=== PATIENT | male | born 1995 | race Caucasian/White ===

== ENCOUNTER 2017-06-24 09:18 | Observation (INO) | payer BC, OTHER ==
[2017-06-24] VITALS (7 sets, daily range): BP systolic 94–114; BP diastolic 56–69; PULSE 58–74; TEMP 36.5–37.4; O2SAT 95–100; Ht 162.6 cm; Wt 58.2 kg
[~2017-06-24] VITALS: Ht 162.6 cm; Wt 58.2 kg
[2017-06-24] MEDS ORDERED: SODIUM CHLORIDE 0.9% 1000ML 1,000 ML IV STA (09:48)
[2017-06-24] MEDS ORDERED: MoRPHine SULFATE 4 MG/ML 1 ML CARP\\VIAL IV STA (09:48)
[2017-06-24] MEDS ORDERED: ONDANSETRON INJ 2 MG/ML 2 ML VIAL IV STA (09:48)
[2017-06-24] MEDS ORDERED: OPTIRAY 320 IV PRN (10:15)
[2017-06-24 10:25] LABS: BASO % 0.2 %; BASO ABS # 0.02 K/uL (0-0.2); EOS % 0.4 %; EOS ABS # 0.05 K/uL (0-0.5); HEMATOCRIT 40.6 % (42-52); HEMOGLOBIN 14.3 g/dL (14.0-18.0); IG# 0.04 K/uL (0.00-0.02); LYMPH ABS # 0.89 K/uL (1.2-3.4); MEAN CELL VOLUME 83.9 fL (80-100); MEAN CORPUSCULAR HEMOGLOBIN 29.5 pg (25-34); MEAN CORPUSCULAR HGB CONC 35.2 g/dl (32-36); MEAN PLATELET VOLUME 10.2 fL (7.4-10.4); MONO % 7.7 %; MONO ABS # 0.97 K/uL (0.11-0.59); NEUT % 84.4 %; NEUT ABS # 10.66 K/uL (1.4-6.5); PLATELET COUNT 190 K/uL (130-400); RED CELL DISTRIBUTION WIDTH CV 12.3 % (11.5-14.5); RED CELL DISTRIBUTION WIDTH SD 37.7 fL (36.4-46.3); WHITE BLOOD COUNT 12.63 K/uL (4.8-10.8)
[2017-06-24 10:35] LABS: ALBUMIN 3.7 gm/dl (3.4-5.0); CREATININE 0.93 mg/dl (0.60-1.40); POTASSIUM 3.6 mmol/L (3.5-5.1)
[2017-06-24 10:38] LABS: TOTAL PROTEIN 7.2 gm/dl (6.4-8.2)
--- NOTE | 2017-06-24 10:52 | EMERGENCY ROOM VISIT NOTE ---
ED Visit Note First contact with patient: 09:32 Chief Complaint: Abdominal pain. History of Present Illness: Mr. Crum is a 22 year-old white male who ambulates into the ED accompanied by his parents complaining of lower quadrant abdominal pain. Historically patient reports no previous gastrointestinal disorders or abdominal surgeries. Patient reports his symptoms started yesterday with a sore throat and nausea. He took [place] and had relief of his discomfort. He then goes on to report that approximately 4:30 AM this morning, approximately 5 hours before he arrived in the emergency department, he was awoken from sleep with acute onset of lower abdominal pain. He reports his pain has been constant since that time but only with activity. If he is not walking or moving his abdominal muscles he reports he is pain-free. If he is walking or moving his abdominal muscles he describes a central lower abdominal pain with right-sided prominence as a sharp sensation. He rates his discomfort 7/10. He has not taken any medications for pain prior to arrival at the hospital. Associated with his pain he reports he is nauseated but has not vomited. Patient denies fevers, chills, sweats, skin eruptions, skin color changes, upper respiratory tract symptoms, shortness of breath, chest pain, diarrhea, constipation, rectal bleeding, black/tarry stools, urinary symptoms, hematuria, back/flank pain. Review of Systems: As noted above in history of present illness. All body systems were reviewed and found to be negative as noted above. Past Medical History: Pneumonia, status post tonsillectomy. Current Medications: Patient denies. Allergies to Medications: Patient denies. Social History: Patient is currently employed; he lives with his family and feels safe in his home environment; he admits to tobacco use and denies alcohol use. Physical Examination: Vital Signs: Date Time Temp Pulse Resp B/P (MAP) Pulse Ox O2 Delivery O2 Flow Rate FiO2 06/24/17 15:45 60 14 108/43 99 Nasal Cannula 2 06/24/17 15:35 36.2 62 15 108/54 98 Nasal Cannula 2 06/24/17 15:25 64 16 104/55 97 Nasal Cannula 2 06/24/17 15:15 83 13 101/58 100 Oxymask 10 06/24/17 15:05 60 16 97/57 100 Oxymask 10 06/24/17 14:59 36.3 79 14 111/69 100 Oxymask 10 06/24/17 13:27 78 18 106/64 98 Room Air 06/24/17 12:38 67 20 115/65 100 Room Air 06/24/17 11:15 68 20 128/78 100 06/24/17 09:23 37.3 95 17 124/69 97 Room Air GENERAL: 22-year-old male in mild distress due to pain, nontoxic-appearing, afebrile and hemodynamically stable. NEUROLOGICAL: Awake, alert and oriented to person, place and time. Answering questions appropriately and following commands. Normal gait. Good hand eye coordination. SKIN: Warm, dry and pink. No soft tissue eruptions or trauma noted. HEENT: Atraumatic and normocephalic. PERRLA. Sclera white and conjunctiva pink. Oral cavity moist and pink. Uvula is midline and no abscesses are seen. Pharynx is mildly erythematous but not edematous. No exudative material over the posterior pharyngeal area. Speech normal. No lymphadenopathy. Trachea midline. No jugular venous distention. BACK: No tenderness over the bony spine. No CVA tenderness. THORAX: Lungs sounds are clear to auscultation and equal bilaterally with symmetrical chest wall. No wheezing, rales or rhonchi. HEART: Regular rate and rhythm. No gallops, rubs or murmurs are appreciated. ABDOMEN: Flat and soft with moderate tenderness and guarding in the right lower quadrant just superior to McBurney's point and mild tenderness without guarding in the left lower quadrant. Positive bowel sounds in all quadrants. No rigidity or organomegaly. EXTREMITIES: Moves all extremities well on command and with purpose. All distal neurovascular statuses are intact and equal bilaterally. ED Course: Patient is assessed as noted above. Patient's medication list was reviewed. Laboratory Testing: Test 06/24/17 10:10 06/24/17 10:30 Range/Units White Blood Count 12.63 4.8-10.8 K/uL Red Blood Count 4.84 4.7-6.1 M/uL Hemoglobin 14.3 14.0-18.0 g/dL Hematocrit 40.6 42-52 % Mean Corpuscular Volume 83.9 80-100 fL Mean Corpuscular Hemoglobin 29.5 25-34 pg Mean Corpuscular Hemoglobin Concent 35.2 32-36 g/dl Platelet Count 190 130-400 K/uL Mean Platelet Volume 10.2 7.4-10.4 fL Neutrophils (%) (Auto) 84.4 % Lymphocytes (%) (Auto) 7.0 % Monocytes (%) (Auto) 7.7 % Eosinophils (%) (Auto) 0.4 % Basophils (%) (Auto) 0.2 % Neutrophils # (Auto) 10.66 1.4-6.5 K/uL Lymphocytes # (Auto) 0.89 1.2-3.4 K/uL Monocytes # (Auto) 0.97 0.11-0.59 K/uL Eosinophils # (Auto) 0.05 0-0.5 K/uL Basophils # (Auto) 0.02 0-0.2 K/uL RDW Standard Deviation 37.7 36.4-46.3 fL RDW Coefficient of Variation 12.3 11.5-14.5 % Immature Granulocyte % (Auto) 0.3 % Immature Granulocyte # (Auto) 0.04 0.00-0.02 K/uL Sodium Level 139 136-145 mmol/L Potassium Level 3.6 3.5-5.1 mmol/L Chloride Level 106 98-107 mmol/L Carbon Dioxide Level 26 21-32 mmol/L Anion Gap 6.0 3-11 mmol/L Blood Urea Nitrogen 11 7-18 mg/dl Creatinine 0.93 0.60-1.40 mg/dl Est Creatinine Clear Calc Drug Dose 103.4 ml/min Estimated GFR () 135.5 Estimated GFR (Non- 116.9 BUN/Creatinine Ratio 11.4 10-20 Random Glucose 87 70-99 mg/dl Calcium Level 9.0 8.5-10.1 mg/dl Total Bilirubin 0.7 0.2-1 mg/dl Direct Bilirubin 0.2 0-0.2 mg/dl Aspartate Amino Transf (AST/SGOT) 10 15-37 U/L Alanine Aminotransferase (ALT/SGPT) 21 12-78 U/L Alkaline Phosphatase 62 45-117 U/L Total Protein 7.2 6.4-8.2 gm/dl Albumin 3.7 3.4-5.0 gm/dl Lipase 83 73-393 U/L Urine Color YELLOW Urine Appearance CLEAR CLEAR Urine pH 6.0 4.5-7.5 Urine Specific [place] 1.022 1.000-1.030 Urine Protein NEG NEG Urine Glucose (UA) NEG NEG Urine Ketones NEG NEG Urine Occult Blood NEG NEG Urine Nitrite NEG NEG Urine Bilirubin NEG NEG Urine Urobilinogen NEG NEG Urine Leukocyte Esterase NEG NEG 06/24/17 Group A Streptococcus Screen: SPECIMEN NEGATIVE FOR GROUP A BETA ST... Appendix Ultrasound: Was reviewed by myself and read by the radiologist and shows findings suggestive of acute appendicitis with a noncompressible blind ending tubular structure in the right lower quadrant measuring 7 mm. Apparent hyperemia and trace fluid. Patient was prepped for a contrast abdominal/pelvic CT prior to ultrasound findings. Patient was hydrated with normal saline and received 4 mg of morphine IV for pain and 4 mg of Zofran IV. Patient was reassessed multiple times during his stay in the emergency department. Patient's case was reviewed with Dr. Crane; we agreed on diagnostic approach, treatment, disposition and plan. Patient's case was consulted with Dr. Hensley, general surgery, for surgical evaluation. Patient and parents were educated about today's findings. Clinical Impression: Acute appendicitis. Decision-Making: Initially my differential diagnosis I considered appendicitis, bowel obstruction, constipation, urinary tract infection, Meckel's diverticulum , mesenteric adenitis and other causes. Disposition and Plan: Patient be taken to the operating room by Dr. Hirsch for an appendectomy; please see his notes and orders for final disposition and plan.
--- NOTE | 2017-06-24 12:00 | DIAGNOSTIC IMAGING REPORT ---
ABDOMINAL ULTRASOUND, RIGHT UPPER QUADRANT HISTORY: ABDOMINAL PAIN. COMPARISON: None. FINDINGS: Note is made of a noncompressible blind ending tubular structure with gut signature within the right lower quadrant that measures 7 mm in caliber. There is apparent hyperemia of the wall. This suggests an abnormal appendix. There is trace fluid within the right lower quadrant. IMPRESSION: Sonographic findings suggestive of acute appendicitis. Electronically signed by: Bob Varghese M.D. 06/24/2017 11:59 AM Dictated Date/Time: 06/24/2017 11:57 AM
--- NOTE | 2017-06-24 12:27 | History and Physical ---
History & Physical Date Jun 24, 2017. History of Present Illness The patient is a 22 year old male with complaints of abdominal pain over past day progressing to RLQ. Past Medical/Surgical History Medical Problems: (1) Tonsillectomy Additional History Hepatic Disease: No Endocrine Disorder: No Kidney Disease: No Hypertension: No Heart Disease: No Bleeding Tendencies: No Infectious Diseases: No Allergies Coded Allergies: No Known Allergies (Unverified , 06/24/17) Home Medications No Active Prescriptions or Reported Meds Physical Examination Skin: warm/dry Eyes: EOMI, sclerae normal Head: normocephalic, atraumatic Neck: supple Respiratory/Chest: no respiratory distress Abdomen / GI: + pertinent finding (+RLQ ttp. +guarding) Extremities: normal inspection Neurologic/Psych: alert, oriented x 3 Diagnosis US shows acute appendicitis. discussed risks/options ( bleeding/infection/dvt/pe/injury to other organs such as ureter etc...) questions answered. will proceed with lap appy. Plan of Treatment lap appy
[2017-06-24] MEDS ORDERED: EpHEDrine SULFATE INJ 50 MG/ML AMP IV PRN (12:45)
[2017-06-24] MEDS ORDERED: FENTANYL CITRATE INJ 50 MCG/1 ML 2 ML VIAL IV PRN (12:45)
[2017-06-24] MEDS ORDERED: ONDANSETRON INJ 2 MG/ML 2 ML VIAL IV PRN ×2 (12:45→15:15)
[2017-06-24] MEDS ORDERED: ATROPINE SULFATE 0.1 MG/ML 5ML SYR IV PRN (12:45)
[2017-06-24] MEDS ORDERED: BUPIVACAINE/EPINEPHRINE 0.5% MPF 1:200,000 30 ML VIAL ONE (13:31)
[2017-06-24] MEDS ORDERED: GLYCOPYRROLATE INJ 0.2 MG/ML VIAL ONE (13:34)
[2017-06-24] MEDS ORDERED: NEOSTIGMINE METHYLSULFATE 5 MG/5 ML SYR ONE (13:34)
[2017-06-24] MEDS ORDERED: LIDOCAINE HCL 2% 2 ML VIAL (20MG/ML) ONE (13:34)
[2017-06-24] MEDS ORDERED: ONDANSETRON INJ 2 MG/ML 2 ML VIAL ONE (13:34)
[2017-06-24] MEDS ORDERED: PROPOFOL IV EMULSION 10 MG/ML 20 ML VIAL IV ONE (13:34)
[2017-06-24] MEDS ORDERED: FENTANYL CITRATE INJ 50 MCG/1 ML 2 ML VIAL ONE (13:34)
[2017-06-24] MEDS ORDERED: DEXAMETHASONE SOD INJ 4 MG/ML VIAL ONE ×2 (13:34→14:29)
[2017-06-24] MEDS ORDERED: MIDAZOLAM HCL 1 MG/ML 2ML VIAL ONE (13:34)
[2017-06-24] MEDS ORDERED: SUCCINYLCHOLINE CHLORIDE 20 MG/ML 10 ML VIAL IV ONE ×2 (13:34→14:29)
[2017-06-24] MEDS ORDERED: EpHEDrine SULFATE INJ 50 MG/ML AMP ONE (13:34)
[2017-06-24] MEDS ORDERED: PHENYLEPHRINE HCL INJ 10 MG/ML VIAL ONE (13:34)
[2017-06-24] MEDS ORDERED: KETOROLAC TROMETHAMINE 30 MG/ML VIAL ONE (14:30)
[2017-06-24] MEDS ORDERED: CEFOXITIN SOD 1 GM VIAL ONE (15:02)
[2017-06-24] MEDS ORDERED: ACETAMINOPHEN IV 100 ML IV PRN (15:15)
[2017-06-24] MEDS ORDERED: MoRPHine SULFATE 2 MG/ML CARP IV PRN (15:15)
[2017-06-24] MEDS ORDERED: HYDROCODONE/ACETAMIN 5/325MG TAB PO PRN ×2 (15:15)
[2017-06-24] MEDS ORDERED: IBUPROFEN 600 MG TAB PO PRN (15:15)
[2017-06-24] MEDS ORDERED: MoRPHine SULFATE 4 MG/ML 1 ML CARP\\VIAL IV PRN (15:15)
--- NOTE | 2017-06-24 16:06 | [facility] Post Operative Brief Note ---
Immediate Operative Summary Operative Date Jun 24, 2017. Pre-Operative Diagnosis Acute Appendicitis Post-Operative Diagnosis Acute Appendicitis Procedure(s) Performed Laparoscopic Appendectomy Surgeon Dr. Hensley Support Merchandiser Surgeon(s) none Estimated Blood Loss 5ml Findings Consistent with Post-Op Diagnosis Specimens A) Appendix Anesthesia Type General Complication(s) none Disposition Disposition: Recovery Room / PACU
--- NOTE | 2017-06-24 16:08 | Anesthesiology Progress Note ---
Anesthesia Post Op Note Date & Time Jun 24, 2017 at 15:24 Vital Signs Pain Intensity: 0 Vital Signs Past 12 Hours Date Time Temp Pulse Resp B/P (MAP) Pulse Ox O2 Delivery O2 Flow Rate FiO2 06/24/17 15:05 60 16 97/57 100 Oxymask 10 06/24/17 14:59 36.3 79 14 111/69 100 Oxymask 10 06/24/17 13:27 78 18 106/64 98 Room Air 06/24/17 12:38 67 20 115/65 100 Room Air 06/24/17 11:15 68 20 128/78 100 06/24/17 09:23 37.3 95 17 124/69 97 Room Air Notes Mental Status: alert / awake / arousable, participated in evaluation Pt Amnestic to Procedure: Yes Nausea / Vomiting: adequately controlled Pain: adequately controlled Airway Patency, RR, SpO2: stable & adequate BP & HR: stable & adequate Hydration State: stable & adequate Anesthetic Complications: no major complications apparent
--- NOTE | 2017-06-24 16:08 | [facility] Operative Report ---
Operative Report Operative Date Jun 24, 2017. Pre-Operative Diagnosis Acute Appendicitis Post-Operative Diagnosis Acute Appendicitis Procedure(s) Performed Laparoscopic Appendectomy Surgeon Dr. Hensley Sr. Logistics Analyst Surgeon(s) none Estimated Blood Loss 5ml Specimens A) Appendix Anesthesia Type General Complication(s) none Disposition Recovery Room / PACU Description of Procedure After informed consent was obtained the patient was taken the operating room and placed in supine position. After successful intubation a Alexander catheter was placed and the left arm was tucked. The abdomen was sterilely prepped and draped in usual fashion. An infraumbilical incision was made with an 11 blade scalpel and carried down through the soft tissue using electrocautery. The anterior rectus fascia was opened using electrocautery and 2 #0 Vicryl stay sutures were placed. Peritoneum was entered using blunt finger penetration and a finger sweep was performed. A 12 mm House trocar was placed and the abdomen was insufflated to 18 mmHg. Laparoscope was inserted and the abdomen examined 360. A suprapubic 5 mm port in the left lower quadrant 12 mm port were placed under direct vision. There is a small amount of purulent fluid in the pelvis which I suctioned out and irrigated. My attention then turned to the right lower quadrant. The appendix was acutely inflamed. I was able to grasp it and pull away from the sidewall. There was no perforation or free fluid. I was able to use a brown cartridge JOÃO stapler to transect the mesentery of the appendix. I was able include the mesentery as well as the base of the appendix itself in one single firing. The appendix was then placed into an Endo Catch bag and removed from the left lower quadrant incision. I performed thorough irrigation of the pelvis as well as the right lower quadrant. The staple line was intact and there was adequate hemostasis. I ran the small bowel backwards for several feet all of which was normal. I evaluated the remainder of the abdomen and saw no other gross abnormalities. The trochars were all removed and the abdomen was desufflated. The fascia of the camera port as well as the left lower quadrant were closed using 0 Vicryl in a [id number] fashion. All the wounds were irrigated and closed using 4-0 Monocryl. Marcaine was injected around the incision for postoperative analgesia and skin glue used as a dressing. The patient was awaken extubated and transferred to recovery in stable condition I attest to the content of the Intraoperative Record and any orders documented therein. Any exceptions are noted below.
[2017-06-24] MEDS: LACTATED RINGER'S 1000ML 1,000 ML IV SCH (21:36)
[2017-06-24] MEDS ORDERED: NURSING VERBAL MED ORDER ONE (21:45)
[2017-06-24] MEDS: CEFOXITIN IV 2,000 MG in DEXTROSE 5% 50ML 50 ML IV SCH (22:05)
[2017-06-25 03:32] VITALS: BP 99/57; PULSE 63; TEMP 36.5; O2SAT 98
[2017-06-25] MEDS: CEFOXITIN IV 2,000 MG in DEXTROSE 5% 50ML 50 ML IV SCH (05:36)
[2017-06-25] MEDS: LACTATED RINGER'S 1000ML 1,000 ML IV SCH (05:36)
--- NOTE | 2017-06-25 06:15 | Surgery Progress Note ---
Surgery Progress Note Date of Service Jun 25, 2017. Subjective Post OP Day: 1 + feeling well, + ambulating, + pain controlled, + diet (He has not eaten yet. Regular diet for Breakfast this AM.), No complaints, No bowel movement, No flatus, No nausea, No vomiting Objective Vital Signs: Date Time Temp Pulse Resp B/P (MAP) Pulse Ox O2 Delivery O2 Flow Rate FiO2 06/25/17 03:32 36.5 63 18 99/57 (71) 98 Room Air 06/25/17 00:00 Room Air 06/24/17 22:58 36.5 74 14 94/62 (73) 95 Room Air 06/24/17 19:33 36.7 58 16 114/69 (84) 99 Room Air 06/24/17 18:01 37.4 63 18 108/56 (73) 96 Room Air 06/24/17 17:48 97 Room Air 06/24/17 17:00 36.8 59 15 104/63 (77) 97 Room Air 06/24/17 16:31 37.1 66 16 106/68 (81) 100 Nasal Cannula 2.0 06/24/17 16:00 Nasal Cannula 2.0 06/24/17 16:00 Nasal Cannula 2.0 06/24/17 16:00 37.0 62 18 110/68 (82) 98 Nasal Cannula 2.0 06/24/17 16:00 Nasal Cannula 2.0 06/24/17 15:45 60 14 108/43 99 Nasal Cannula 2 06/24/17 15:35 36.2 62 15 108/54 98 Nasal Cannula 2 06/24/17 15:25 64 16 104/55 97 Nasal Cannula 2 06/24/17 15:15 83 13 101/58 100 Oxymask 10 06/24/17 15:05 60 16 97/57 100 Oxymask 10 06/24/17 14:59 36.3 79 14 111/69 100 Oxymask 10 06/24/17 13:27 78 18 106/64 98 Room Air 06/24/17 12:38 67 20 115/65 100 Room Air 06/24/17 11:15 68 20 128/78 100 06/24/17 09:23 37.3 95 17 124/69 97 Room Air General Appearance: WD/WN, no apparent distress Head: normocephalic, atraumatic Respiratory/Chest: no respiratory distress, no accessory muscle use Abdomen: non distended, soft, no organomegaly, + tenderness (Mild incisional) Incision(s): clean, dry, intact, no erythema, no drainage Laboratory Results: Results Past 24 Hours Test 06/24/17 10:10 06/24/17 10:30 06/25/17 04:44 Range/Units White Blood Count 12.63 4.8-10.8 K/uL Red Blood Count 4.84 4.7-6.1 M/uL Hemoglobin 14.3 14.0-18.0 g/dL Hematocrit 40.6 42-52 % Mean Corpuscular Volume 83.9 80-100 fL Mean Corpuscular Hemoglobin 29.5 25-34 pg Mean Corpuscular Hemoglobin Concent 35.2 32-36 g/dl Platelet Count 190 130-400 K/uL Mean Platelet Volume 10.2 7.4-10.4 fL Neutrophils (%) (Auto) 84.4 % Lymphocytes (%) (Auto) 7.0 % Monocytes (%) (Auto) 7.7 % Eosinophils (%) (Auto) 0.4 % Basophils (%) (Auto) 0.2 % Neutrophils # (Auto) 10.66 1.4-6.5 K/uL Lymphocytes # (Auto) 0.89 1.2-3.4 K/uL Monocytes # (Auto) 0.97 0.11-0.59 K/uL Eosinophils # (Auto) 0.05 0-0.5 K/uL Basophils # (Auto) 0.02 0-0.2 K/uL RDW Standard Deviation 37.7 36.4-46.3 fL RDW Coefficient of Variation 12.3 11.5-14.5 % Immature Granulocyte % (Auto) 0.3 % Immature Granulocyte # (Auto) 0.04 0.00-0.02 K/uL Sodium Level 139 136-145 mmol/L Potassium Level 3.6 3.5-5.1 mmol/L Chloride Level 106 98-107 mmol/L Carbon Dioxide Level 26 21-32 mmol/L Anion Gap 6.0 3-11 mmol/L Blood Urea Nitrogen 11 7-18 mg/dl Creatinine 0.93 0.60-1.40 mg/dl Est Creatinine Clear Calc Drug Dose 103.4 ml/min Estimated GFR () 135.5 Estimated GFR (Non- 116.9 BUN/Creatinine Ratio 11.4 10-20 Random Glucose 87 70-99 mg/dl Calcium Level 9.0 8.5-10.1 mg/dl Total Bilirubin 0.7 0.2-1 mg/dl Direct Bilirubin 0.2 0-0.2 mg/dl Aspartate Amino Transf (AST/SGOT) 10 15-37 U/L Alanine Aminotransferase (ALT/SGPT) 21 12-78 U/L Alkaline Phosphatase 62 45-117 U/L Total Protein 7.2 6.4-8.2 gm/dl Albumin 3.7 3.4-5.0 gm/dl Lipase 83 73-393 U/L Urine Color YELLOW Urine Appearance CLEAR CLEAR Urine pH 6.0 4.5-7.5 Urine Specific [place] 1.022 1.000-1.030 Urine Protein NEG NEG Urine Glucose (UA) NEG NEG Urine Ketones NEG NEG Urine Occult Blood NEG NEG Urine Nitrite NEG NEG Urine Bilirubin NEG NEG Urine Urobilinogen NEG NEG Urine Leukocyte Esterase NEG NEG Microbiology Results 06/24/17 Group A Streptococcus Screen - Final, Resulted SPECIMEN NEGATIVE FOR GROUP A BETA ST... 06/24/17 Group A Streptococcus Screen (YAIMA), Resulted Pending Assessment & Plan POD #1 s/p laparoscopic appendectomy Pain controlled, No N/V, Urinating okay. Has not eaten yet. Regular diet for breakfast this AM. Probable D/C today if he is tolerating some foods and pain remains controlled. Please contact with questions or concerns.
--- NOTE | 2017-06-25 06:18 | Discharge Instructions ---
Discharge Instructions Date of Service Jun 25, 2017. Admission Reason for Admission: Appendicitis Discharge Discharge Diagnosis / Problem: Appendicitis Discharge Goals Goal(s): Decrease discomfort, Improve function Activity Recommendations Activity Limitations: as noted below Lifting Limitations: no more than 10 pounds, until after follow-up appointment Exercise/Sports Limitations: until after follow-up appointment May Resume Sexual Activity: after follow-up appointment Shower/Bathe: tomorrow Driving or Machine Use: resume 3 days after discharge (Please do not drive while using narcotic pain medication) . Instructions / Follow-Up Instructions / Follow-Up You have surgical glue covering your incision sites. Please allow this to fall off on its own. You have been prescribed [place] to take as needed for pain relief. You may alternate this with Ibuprofen as well. Follow-up with Dr. Hensley in 1-2 weeks. Please contact our office at to schedule an appointment if you have not done so already. Please contact our office with any further questions or concerns. [facility] [address] [place] [address]. Current Hospital Diet Patient's current hospital diet: Regular Diet Discharge Diet Recommended Diet: Regular Diet Procedures Procedures Performed: Laparoscopic Appendectomy Pending Studies Studies pending at discharge: yes List of pending studies: pathology Medical Emergencies . Who to Call and When: Medical Emergencies: If at any time you feel your situation is an emergency, please call 911 immediately. . Non-Emergent Contact Non-Emergency issues call your: Primary Care Provider, Surgeon Call Non-Emergent contact if: you have a fever, temperature is above 101.5, your pain is not controlled, your pain is worsening, wound has increased drainage, wound has increased redness . "Provider Documentation" section prepared by Mani Miller. . [place] Drug Monitoring Program Search Results: patient reviewed within database, no issues identified
[2017-06-25] MEDS ORDERED: HYDR-5688 PO (06:19)
[2017-06-25 06:55] LABS: BASO % 0.2 %; BASO ABS # 0.02 K/uL (0-0.2); EOS % 0.4 %; EOS ABS # 0.05 K/uL (0-0.5); HEMATOCRIT 37.3 % (42-52); HEMOGLOBIN 12.8 g/dL (14.0-18.0); IG# 0.02 K/uL (0.00-0.02); LYMPH % 14.5 %; LYMPH ABS # 1.71 K/uL (1.2-3.4); MEAN CELL VOLUME 85.2 fL (80-100); MEAN CORPUSCULAR HEMOGLOBIN 29.2 pg (25-34); MEAN CORPUSCULAR HGB CONC 34.3 g/dl (32-36); MEAN PLATELET VOLUME 10.5 fL (7.4-10.4); MONO % 7.3 %; MONO ABS # 0.86 K/uL (0.11-0.59); NEUT % 77.4 %; NEUT ABS # 9.11 K/uL (1.4-6.5); PLATELET COUNT 198 K/uL (130-400); RED CELL DISTRIBUTION WIDTH CV 12.3 % (11.5-14.5); RED CELL DISTRIBUTION WIDTH SD 38.2 fL (36.4-46.3); WHITE BLOOD COUNT 11.77 K/uL (4.8-10.8)
[2017-06-25 07:46] VITALS: BP 109/59; PULSE 60; TEMP 36.6; O2SAT 99
[2017-06-25] MEDS ORDERED: NURSING VERBAL MED ORDER ONE (08:30)
[2017-06-25 10:05] VITALS: BP 109/59; PULSE 60; TEMP 36.6; O2SAT 99
--- NOTE | 2017-06-26 07:45 | Discharge Summary ---
Discharge Summary Date of Service Jun 26, 2017. Admission Date/Reason Jun 24, 2017 at 15:12 Appendicitis. Discharge Date/Disposition Jun 25, 2017 Home Diagnosis Principal Diagnosis: Appendicitis Procedure(s) Performed Laparoscopic appendectomy Medication Reconciliation Stanton 5mg/325mg 1-2 Tablets Q4H PRN for pain x 3 days. Disp: 20 Tablets. Admission Physical Exam As per Admitting History & Physical. Hospital Course 06/24/17: Patient presented to the ED this evening due to progressing RLQ pain. Reports he had some nausea yesterday and then was woken up from his sleep this morning with sharp RLQ pain. Denies fever/chills/vomiting. Moving his bowels and urinating without trouble. Denies previous abdominal surgeries. He does not use blood thinning or anticoagulant medications. WBC 12.63 at this time. RLQ U/ S shows findings significant for acute appendicitis. At this time the OR was notified, Pre-op antibiotics given and the patient was taken to the OR for laparoscopic appendectomy. The procedure was performed successfully without complications and the patient was admitted to med/surg on observation for the night. 06/25/17: This AM his pain is controlled with only mild incisional tenderness. Urinating without difficulty. Tolerating regular diet. Patient was discharged this afternoon with 3 days work of [place] for pain relief. He will follow-up with Dr. Hensley in the office in 1-2 weeks. Discharge Instructions Please refer to the electronic Patient Visit Report (Discharge Instructions) for additional information.
== END 2017-06-25 10:45 | disposition home or self-care (01) ==
LOC: C.EDB 09:21 → C.MSW 15:12 → ENRESERV 15:26
PROVIDERS: ADMIT Surgery; ATTEND Surgery
DX: K35.80 Unspecified acute appendicitis (principal); F17.200 Nicotine dependence, unspecified, uncomplicated; Z90.89 Acquired absence of other organs